=== PATIENT | male | born 1990 | race Caucasian/White ===

== ENCOUNTER 2018-04-09 22:18 | Emergency (ER) | payer OTHER ==
[2018-04-09 22:26] VITALS: BP 151/86; PULSE 73; TEMP 99.2; BMI 33.0
--- NOTE | 2018-04-09 22:49 | PDOC ---
History of Present Illness - General Chief Complaint: Injury Stated Complaint: INJURY Time Seen by Provider: 04/09/18 22:49 History Source: Patient Exam Limitations: No Limitations - History of Present Illness Initial Comments: 04/09/18 23:03 27 year old male with no PMH presented to ED for fall. 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 Pt denied head injury, LOC and vomiting or any other complaints. Pt stated he was able to bear weight and ambulate unassisted afterwards. Allergies: NKDA Past History - Past Medical History Allergies/Adverse Reactions: Allergies Allergy/AdvReac Type Severity Reaction Status Date / Time No Known Allergies Allergy Verified 04/09/18 22:24 Home Medications: Ambulatory Orders NK [No Known Home Medication] 11/07/14 COPD: No - Immunization History Immunization Up to Date: Yes - Suicide/Smoking/Psychosocial Hx Smoking History: Current some day smoker Number of Cigarettes Smoked Daily: 1 Information on smoking cessation initiated: No Hx Alcohol Use: Yes ("once in awhile") Drug/Substance Use Hx: No Substance Use Type: Alcohol Review of Systems - Review of Systems Able to Perform ROS?: Yes Comments:: 04/09/18 23:05 General: denied fever, chills, night sweats, generalized weakness. HEENT: denied sore throat, rhinorrhea, ear pain. Heart: denied chest pain, palpitations, syncope, lower extremity swelling, diaphoresis. Respiratory: denied shortness of breath, cough, sputum production, hemoptysis. Abdomen: denied abdominal pain, nausea, vomiting, diarrhea, constipation, blood in stool. : denied dysuria, increased urinary frequency, hematuria, urinary incontinence , flank pain. Back: denied back pain. Musculoskeletal: admitted to right ankle pain, right knee pain. Neurological: denied headache, dizziness, numbness, tingling, weakness. Skin: denied rash, laceration, abrasion. *Physical Exam - Vital Signs Last Vital Signs Temp Pulse Resp BP Pulse Ox 99.2 F 73 18 151/86 98 04/09/18 22:25 04/09/18 22:25 04/09/18 22:25 04/09/18 22:25 04/09/18 22:25 - Physical Exam Comments: 04/09/18 23:06 Constitutional: Well-nourished, Well-developed, appearing stated age. HEENT: head is normocephalic, atraumatic. no scalp hematoma. no burns sign. no racoon eyes. EOMI. PERRLA. Neck: supple. Full ROM. no midline c-spine tenderness. Heart: regular rhythm. no murmurs, rubs or gallops. Lungs: clear to auscultation bilaterally. no crackles, rhonchi or wheezing. no stridor. Abdomen: soft, nontender. normal bowel sounds. no rebound, guarding, masses. Extremities: full active extension and active flexion of right knee without difficulty. no swelling to right knee. no ecchymoses to right knee. no tenderness to palpation of right knee, no ligament laxity. mild swelling to right ankle, full active ROM, no ecchymoses, no medial mallelous tenderness, no lateral malleolus tenderness, no tenderness at the base of the 5th metatarsal. 2 + DSP to right foot. no popliteal tenderness to palpation. full sensation to right lower extremity. pt can bear weight and ambulate unassisted without difficulty. Neurological: CN 2-12 grossly intact. Moves all four extremities. Psych: awake, alert, oriented x3. Follows commands. Answers questions appropriately. 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 Initial Vital Signs Temp Pulse Resp BP Pulse Ox 99.2 F 73 18 151/86 98 04/09/18 22:25 04/09/18 22:25 04/09/18 22:25 04/09/18 22:25 04/09/18 22:25 Afebrile. No tachycardia. No tachypnea. Mild hypertension. No hypoxia on room air. Toradol ordered for pain. Pending right ankle XR, right knee XR. 04/10/18 00:39 Pt refused toradol. Motrin ordered. XRs negative for fracture/dislocation/joint effusion. Pt to be discharged with ortho referral. 04/10/18 12:14 Official XR reports stated no acute pathology. *DC/Admit/Observation/Transfer Diagnosis at time of Disposition: Ankle pain, Knee pain - Discharge Dispostion Disposition: HOME Condition at time of disposition: Stable Decision to Admit order: No - Referrals Referrals: Zafar Dent DO [Staff Physician] - Chung Kirk MD [Staff Physician] - Sandeep Meier MD [Staff Physician] - - Patient Instructions Additional Instructions: Your X-rays were normal. Take over the counter Ibuprofen and/or Tylenol for your pain. Take as advised on labels. I have given you a referral for an orthopedic doctor, follow up with them in 7 days if your pain does not resolve. Return to Emergency Department for increasing pain, blueness of toes, numbness/ tingling, or any other new, worsening or concerning symptoms. Follow up with your primary care doctor within 5 days. Your care is not complete until you follow up. - Post Discharge Activity Forms/Work/School Notes: Back to Work
--- NOTE | 2018-04-09 22:52 | PDOC ---
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 The patient reports that he was at work earlier today when he was making an attempt to take down someone when he tackled the person and landed and inverter his right foot. The patient reports that he was able to ambulate afterwards with some pain. He denies any numbness or tingling sensation. He denies any other symptoms or complaints. - Physicial Exam PE: 04/10/18 00:46 GENERAL: Awake, alert, and fully oriented, in no acute distress HEAD: No signs of trauma EYES: PERRLA, EOMI, sclera anicteric, conjunctiva clear ENT: Auricles normal inspection, hearing grossly normal, nares patent, oropharynx clear without exudates. Moist mucosa NECK: Normal ROM, supple, no lymphadenopathy, JVD, or masses LUNGS: Breath sounds equal, clear to auscultation bilaterally. No wheezes, and no crackles HEART: Regular rate and rhythm, normal S1 and S2, no murmurs, rubs or gallops ABDOMEN: Soft, nontender, normoactive bowel sounds. No guarding, no rebound. No masses EXTREMITIES: (+)right ankle swelling, tenderness to knee. Full ROM with some pain . no edema. No clubbing or cyanosis. No cords, erythema. NEUROLOGICAL: Cranial nerves II through XII grossly intact. Normal speech, normal gait SKIN: Warm, Dry, normal turgor, no rashes or lesions noted. Documentation prepared by Yuko Serrano, acting as clinical medical assistant for Carmen Dotson MD. <Yuko Serrano - Last Filed: 04/10/18 00:45> - Resident Resident Name: Mag Barreto - ED Attending Attestation I have performed the following: I have examined & evaluated the patient, The case was reviewed & discussed with the resident, I agree w/resident's findings & plan - Medical Decision Making 04/11/18 02:55 Pt is stable for discharge home. Exam and imaging normal. <Carmen Dotson - Last Filed: 04/11/18 02:56>
[2018-04-09] MEDS ORDERED: KETOROLAC TROMETHAMINE 30 MG/1 ML VIAL IM ONE (23:01)
[2018-04-10] MEDS ORDERED: KETOROLAC TROMETHAMINE 30 MG/1 ML VIAL ONE (00:14)
[2018-04-10] MEDS ORDERED: IBUPROFEN 600 MG TABLET (FP) PO ONE (00:34)
== END 2018-04-10 00:47 | disposition home or self-care (01) ==
LOC: JER 22:18
DX: S89.81XA Other specified injuries of right lower leg, initial encounter (principal); S99.811A Other specified injuries of right ankle, initial encounter; Y35.811A Legal intervention involving manhandling, law enforcement official injured, initial encounter; Y93.89 Activity, other specified; Y92.89 Other specified places as the place of occurrence of the external cause; Y99.0 Civilian activity done for income or pay
CPT/HCPCS: 73562-TC-RT-FY; 73610-TC-RT-FY; 73630-TC-RT-FY; 99283-25

== ENCOUNTER 2020-09-14 23:11 | Emergency (ER) | payer BC, OTHER ==
[2020-09-14 23:24] VITALS: BP 146/93; PULSE 68; TEMP 98.3; BMI 34.2
== END 2020-09-14 23:51 | disposition home or self-care (01) ==
LOC: JER 23:11
DX: Z77.29 Contact with and (suspected) exposure to other hazardous substances (principal)
CPT/HCPCS: 99282-25

== ENCOUNTER 2022-02-21 21:50 | Emergency (ER) | payer OTHER ==
[2022-02-21 22:21] VITALS: BP 147/102; PULSE 99; RESP 16; TEMP 100; BMI 34.7
== END 2022-02-21 22:54 | disposition home or self-care (01) ==
LOC: FER 21:50
DX: S63.502A Unspecified sprain of left wrist, initial encounter (principal)
CPT/HCPCS: 73110-TC-LT-FY; 99284-25